=== PATIENT | female | born 2000 | race Caucasian/White ===

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

== ENCOUNTER 2019-01-09 15:51 | Emergency (ER) | payer BC ==
[2019-01-09 16:19] VITALS: BP 121/72
--- NOTE | 2019-01-09 16:29 | UC ---
Respiratory Complaint HPI - HPI Summary HPI Summary: Pt presents with c/o cough, nasal congestion, and PND X 4 days. Pt denies fever, chills or body aches. Pt has taken OTC mucinex once daily X 2 days. Pt took OTC pseudaphed once daily X 2 days with no reported improvement in symptoms. - History of Current Complaint Chief Complaint: UCRespiratory Stated Complaint: CONGESTION, COUGH Time Seen by Provider: 01/09/19 16:13 Hx Obtained From: Patient Hx Last Menstrual Period: now ?: No Onset/Duration: Gradual Onset, Lasting Days, Still Present Timing: Constant Severity Initially: Mild Severity Currently: Moderate Pain Intensity: 6 Character: Cough: Nonproductive Aggravating Factors: Deep Breaths, Recumbent Position Alleviating Factors: Nothing Associated Signs And Symptoms: Positive: URI, Nasal Congestion Related History: Seasonal Allergies - Risk Factors Pulmonary Embolism Risk Factors: Negative Cardiac Risk Factors: Negative Pseudomonas Risk Factors: Negative Tuberculosis Risk Factors: Negative - Allergies/Home Medications Allergies/Adverse Reactions: Allergies Allergy/AdvReac Type Severity Reaction Status Date / Time seasonal Allergy Eyes Uncoded 01/09/19 16:20 Itchy/Swollen/Red/Watery Home Medications: Home Medications Levocetirizine Dihydrochloride [Xyzal] 5 mg PO DAILY PRN 01/09/19 [History Confirmed 01/09/19] PMH/Surg Hx/FS Hx/Imm Hx Previously Healthy: Yes - Surgical History Surgical History: None - Family History Known Family History: Positive: Cardiac Disease - Social History Occupation: Student Lives: Dormitory/Roommates Alcohol Use: Occasionally Substance Use Type: None Smoking Status (MU): Never Smoked Tobacco Have You Smoked in the Last Year: No - Immunization History Vaccination Up to Date: Yes Review of Systems All Other Systems Reviewed And Are Negative: Yes Constitutional: Positive: Negative Skin: Positive: Negative Eyes: Positive: Negative ENT: Positive: Sore Throat, Sinus Congestion Respiratory: Positive: Cough Cardiovascular: Positive: Negative Gastrointestinal: Positive: Negative Genitourinary: Positive: Negative Motor: Positive: Negative Neurovascular: Positive: Negative Musculoskeletal: Positive: Negative Neurological: Positive: Negative Psychological: Positive: Negative Is Patient Immunocompromised?: No Physical Exam Triage Information Reviewed: Yes Appearance: Well-Appearing Vital Signs: Initial Vital Signs Temp 99.3 F 01/09/19 16:13 Pulse 92 01/09/19 16:13 Resp 20 05/14/19 16:13 BP 121/72 01/09/19 16:13 Pulse Ox 99 01/09/19 16:13 Vital Signs Reviewed: Yes Eye Exam: Normal ENT: Positive: Nasal congestion, TM bulging Dental Exam: Normal Neck exam: Normal Respiratory Exam: Normal Respiratory: Positive: Chest non-tender, Lungs clear, Normal breath sounds, No respiratory distress Cardiovascular Exam: Normal Musculoskeletal Exam: Normal Neurological Exam: Normal Psychological Exam: Normal Skin Exam: Normal Respiratory Course/Dx - Differential Dx/Diagnosis Differential Diagnosis/HQI/PQRI: Bronchitis, Influenza Provider Diagnosis: Viral syndrome Discharge - Sign-Out/Discharge Documenting (check all that apply): Patient Departure All imaging exams completed and their final reports reviewed: No Studies - Discharge Plan Condition: Stable Disposition: HOME Prescriptions: Benzonatate CAP* [Tessalon 100 MG CAP*] 200 mg PO Q8H PRN #30 cap PRN Reason: Cough Guaifenesin/Pseudoephedrne HCl [Mucinex D ER 600-60 mg Tablet] 1 each PO Q12H # 14 tab.er.12h predniSONE TAB* [Deltasone 10 MG TAB*] 30 mg PO DAILY #12 tab Patient Education Materials: Viral Syndrome (ED) Referrals: [facility] [Outside] - If Needed Non Staff,Doctor [Primary Care Provider] - - Billing Disposition and Condition Condition: STABLE Disposition: Home
== END 2019-01-09 16:42 | disposition home or self-care (01) ==
LOC: UCCORT 15:51
DX: B34.9 Viral infection, unspecified (principal); J30.2 Other seasonal allergic rhinitis
CPT/HCPCS: 99212; G0463